=== PATIENT | male | born 1985 ===

== ENCOUNTER 2017-02-13 12:08 | Emergency (ER) | payer BC ==
--- NOTE | 2017-02-13 12:39 | ERPHSYRPT ---
- History of Present Illness Time Seen by Provider: 02/13/17 12:20 Source: patient Exam Limitations: clinical condition Patient Subjective Stated Complaint: got hand caught on double end production grinder and now has laceration to left hand Triage Nursing Assessment: pt has laceration to left side of hand 1 1.2 cm in length, no bleeding at present Physician History: PATIENT STRUCK HIS HAND AGAINST A SHELLFISH GROWER SUSTAINED LACERATION TO BACK OF LEFT HAND ADJACENT TO SMALL FINGER. DENIES PAIN DISCOMFORT. Occurred: just prior to arrival Method of Injury: incised Quality: constant Severity of Pain-Max: mild Severity of Pain-Current: mild Extremities Pain Location: hand: left Modifying Factors: Improves With: movement Associated Symptoms: none Allergies/Adverse Reactions: Penicillins Allergy (Mild, Verified 02/13/17 12:21) Home Medications: No Reportable Medications [No Reported Medications] 10/20/13 [History] Hx Tetanus, Diphtheria Vaccination/Date Given: Yes (3 years) Hx Influenza Vaccination/Date Given: No Hx Pneumococcal Vaccination/Date Given: No Immunizations Up to Date: Yes - Review of Systems Musculoskeletal: Injury Neurological: No Dizziness, No Focal Weakness, No Sensory Changes - Past Medical History Pertinent Past Medical History: Yes Musculoskeletal History: Other - Past Surgical History Past Surgical History: Yes Musculoskeletal: Orthopedic Surgery Other Surgical History: right shoulder , right knee - Social History Smoking Status: Never smoker Exposure to second hand smoke: Yes Drug Use: none Patient Lives Alone: No - Nursing Vital Signs Nursing Vital Signs: Initial Vital Signs Temperature 99.0 F 02/13/17 12:13 Pulse Rate 70 02/13/17 12:13 Blood Pressure 128/89 02/13/17 12:13 Pain Scale Pain Intensity 1 - Physical Exam General Appearance: alert Hand Exam: laceration, soft tissue tenderness (LEFT HAND WITH 1.2 CM LACERATION DORSUM DISTAL 3RD 5TH METACARPAL, WITHOUT EVIDENCE OF TENDON LACERATION OR FOREIGN BODY.) SpO2 Interpretation: normal Oxygen Delivery: Room Air Procedures - Laceration/Wound Repair Left Hand Wound Location: hand Wound Length (cm): 1.2 Wound's Depth, Shape: superficial, linear Wound Explored: clean Irrigated: Yes Hibiclens Prep: Yes Anesthesia: local, 2% Lidocaine Volume Anesthetic (ccs): 3 Suture Size/Type: 4-0, nylon Number of Sutures: 5 - Radiology Exams Left Hand X-ray Interpretation: Discussed w/ radiologist, No Fracture Ordered Tests: Active Orders 24 hr Category Date Time Status HAND (MINIMUM 3 VIEWS) Stat Exams 02/13/17 12:28 Completed Medication Summary Discontinued Medications Generic Name Dose Route Start Last Admin Trade Name Prosper PRN Reason Stop Dose Admin Lidocaine HCl Confirm 02/13/17 12:55 Xylocaine 2% Hcl 20 Ml Mdv Administered 02/13/17 12:56 Dose 5 ml .ROUTE .STK-MED ONE - Progress Counseled pt/family regarding: diagnosis, need for follow-up, rad results - Departure Time of Disposition: 13:40 Departure Disposition: Home Clinical Impression: LACERATION LEFT HAND Condition: Stable Critical Care Time: No Referrals: MIRIAM ANN NP [Primary Care Provider] - Additional Instructions: CONTINUE ANTIBIOTICS CLINDAMYCIN DIRECTED. HAVE STITCHES REMOVED AT 10 DAYS. WATCH FOR SIGNS OF INFECTION, REDNESS, SWELLING OR DRAINAGE. MAINTAIN ALUMINUM SPLINT FOR 10 DAYS. TAKE OVER THE COUNTER MOTRIN NEEDED.
[2017-02-13] MEDS ORDERED: XYLOCAINE 2% HCL 20 ML MDV ONE (12:55)
--- NOTE | 2017-02-13 13:00 | XRAY ---
Indication: Pain following injury. Comparison: None 3 views of the left hand obtained. No bony, articular, or soft tissue abnormalities.
[2017-02-13 13:47] VITALS: BP 115/71; PULSE 64; O2SAT 98
== END 2017-02-13 13:47 | disposition home or self-care (01) ==
LOC: ED 12:08
PROC: 0HQGXZZ Repair Left Hand Skin, External Approach (ICD-10-PCS; principal; 2017-02-13)
DX: S61.412A Laceration without foreign body of left hand, initial encounter (principal); W29.8XXA Contact with other powered hand tools and household machinery, initial encounter
CPT/HCPCS: 12001; 73130; 99284; L3908